=== PATIENT | female | born 1925 | race Caucasian/White ===

== ENCOUNTER 2016-09-19 14:18 | Emergency (ER) | payer MEDICARE, OTHER ==
[2016-09-19 15:13] LABS: BASOPHIL 0.7 % (0-2); EOSINOPHIL 4.6 % (0-7); HCT 38.1 % (37.0-47.0); LYMPHOCYTE 22.7 % (15-48); MCH 30.1 pg (25.0-31.0); MCHC 34.1 g/dL (32.0-36.0); MCV 88.2 fL (78.0-100.0); MONOCYTE 9.3 % (0-12); MPV 10.3 fL (6.0-9.5); NEUTROPHIL 62.7 % (41-80); PLT 259 K/uL (150-400); RBC 4.32 M/uL (4.20-5.40); RDW 13.8 % (11.5-14.0); WBC 8.5 K/uL (4.0-10.5)
[2016-09-19 15:50] LABS: ALBUMIN 3.7 g/dL (3.4-4.8); BILIRUBIN - TOTAL 0.2 mg/dL (0.1-1.0); CREATININE 1.9 mg/dL (0.5-1.0); GLOBULIN (CALCULATION) 3.1 g/dL (2.2-4.2); POTASSIUM 4.4 mmol/L (3.5-5.1); TOTAL PROTEIN 6.8 g/dL (6.4-8.3)
== END 2016-09-19 17:19 | disposition home or self-care (01) ==
LOC: FER 14:18
PROVIDERS: Internal Medicine
DX: E11.649 Type 2 diabetes mellitus with hypoglycemia without coma (principal); I10 Essential (primary) hypertension; Z88.2 Allergy status to sulfonamides; Z79.84 Long term (current) use of oral hypoglycemic drugs; Z79.4 Long term (current) use of insulin; Z79.899 Other long term (current) drug therapy
CPT/HCPCS: 36415; 80053; 85025